=== PATIENT | female | born 1990 | race African-American/Black ===

== ENCOUNTER 2020-09-12 10:20 | Observation (INO) | payer OTHER, SELFPAY ==
[2020-09-12 10:43] VITALS: BP 125/68; PULSE 88
[2020-09-12 10:50] VITALS: BMI 35.5
[2020-09-12 11:00] VITALS: TEMP 36.7
[2020-09-12 11:10] LABS: Add Urine Microscopic? YES; Appearance Urine Clear (Clear); Bacteria Urine Trace /hpf; Bilirubin Urine Negative (Negative); Blood Urine Negative (Negative); Color Urine Yellow (Yellow); Glucose Urine UA Negative (Negative); Ketones Urine Negative (Negative); Leukocyte Esterase Ur Trace LEU/UL (NEGATIVE); Mucus Urine Moderate /lpf; Nitrate Urine Negative (Negative); Protein Urine Negative (Negative); RBC Urine 0-2 /hpf (0-2); Specific Grav Ur 1.015 (1.001-1.035); Squamous Epithelial Cell Urine Occasional /hpf (Few); Urobilinogen Urine Negative mg/dL (<2.0); WBC Clumps Urine Present /HPF; WBC Urine 31-50 /hpf (0-3)
--- NOTE | 2020-09-12 12:12 | PM.OBTRLD ---
OB - Triage/Final Diagnosis Evaluation Laboratory results: Laboratory Tests 09/12/20 10:55 Urine Color Yellow Urine Appearance Clear Urine pH 7.0 Ur Specific [place] 1.015 Urine Protein Negative Urine Glucose (UA) Negative Urine Ketones Negative Ur Blood (Man) Negative Urine Nitrate Negative Urine Bilirubin Negative Urine Urobilinogen Negative Ur Leukocyte Esterase Trace H Urine RBC 0-2 Urine WBC 31-50 H Urine WBC Clumps Present H Ur Squamous Epith Cells Occasional Urine Bacteria Trace Hyaline Casts 1-2 Urine Mucus Moderate H Vital signs: Vital Signs - 24 hr 09/12/20 10:43 Pulse Rate 88 Blood Pressure 125/68 Final Diagnosis (1) Pelvic pain affecting : Code(s): O26.899 - Other specified related conditions, unspecified trimester; R10.2 - Pelvic and perineal pain Status: Acute Plan: encouraged PO hydration (2) UTI (urinary tract infection): Code(s): N39.0 - Urinary tract infection, site not specified Status: Acute Plan: rx for macrobid sent to pharmacy
== END 2020-09-12 12:40 | disposition home or self-care (01) ==
PROVIDERS: Admitting Provider Obstetrics & Gynecology; Visit Provider Obstetrics & Gynecology
DX: O23.40 Unspecified infection of urinary tract in pregnancy, unspecified trimester (principal); O26.899 Other specified pregnancy related conditions, unspecified trimester; R10.2 Pelvic and perineal pain; Z3A.00 Weeks of gestation of pregnancy not specified
CPT/HCPCS: 81001; 87086; 87088; G0378; G0379

== ENCOUNTER 2020-10-19 11:49 | Outpatient (RCR) | payer OTHER, SELFPAY ==
--- NOTE | ~2020-10-19 | US_ITS ---
EXAMINATION: US OB limited w BPP DATE: 10/19/2020 13:07 PLATFORM ARCHITECT INDICATION: tachycardia TECHNIQUE: Real-time transabdominal obstetric ultrasound. FINDINGS: No prior studies for comparison. There is a single living fetus in vertex presentation. The placenta is anterior without placenta pre via. cardiac activity and movement is noted with a heart rate of 141 beats per minute. Biophysical profile: breathin of 2 movement: 2 of 2 tone: 2 of 2 Amniotic flud pocket: 2 of 2 Total score: 8 of 8 Amniotic fluid index is below normal limits measuring 6.5 cm (normal range for gestational age is 7.3 -23.9 cm). IMPRESSION: 1. Single living intrauterine in vertex presentation. 2: Total biophysical profile score of 8/8. 3: Oligohydramnios. SHEYLA measures 6.5 cm. Reviewed, dictated and finalized at location A. FORM ARCHITECT
[2020-10-19 13:55] VITALS: BP 119/78; PULSE 82
== END 2020-10-31 07:53 | disposition home or self-care (01) ==
LOC: ANHOBOP 11:49
PROVIDERS: Visit Provider Obstetrics & Gynecology
DX: O36.8330 Maternal care for abnormalities of the fetal heart rate or rhythm, third trimester, not applicable or unspecified (principal); O41.03X0 Oligohydramnios, third trimester, not applicable or unspecified; Z3A.38 38 weeks gestation of pregnancy
CPT/HCPCS: 59025; 76815; 76819; 84112

== ENCOUNTER 2020-10-26 17:22 | Inpatient (IN) | payer OTHER, SELFPAY ==
[2020-10-26] VITALS (15 sets, daily range): BP systolic 119–140; BP diastolic 78–94; PULSE 79–98; TEMP 36.3–36.4; BMI 36.8
--- NOTE | 2020-10-26 17:22 | LDADM ---
This patient, Zunilda Hunt, was admitted to Labor/Delivery/Recovery 109 on 10/26/20 at 17:22. Plans for labor, pain management and were discussed with patient. Patient/family oriented to hospital policies and general routines including ID bracelet, bed and alarms, visiting hours, pain management, procedures, bathroom and other care routines, personal items, smoking policy, room service/diet and guest tray routines, infant security routines, and visiting hours. Patient/Family are encouraged to report perceived risks to care and to ask questions if they do not understand what they are told or what they should do. See OBIX for further documentation.
[2020-10-26 18:18] LABS: Basophils Percent Auto 0.3 % (0.2-1.2); Eosinophils Absolute Auto 0.1 K/mm3 (0-0.3); Eosinophils Percent Auto 0.9 % (0-4.4); Hematocrit 36.9 % (37.0-47.0); Hemoglobin 12.8 g/dL (12.0-15.0); Immature Granulocyte Absolute 0.15 K/mm3 (0.00-0.031); Immature Granulocyte Percent A 1.3 % (0-0.5); Lymphocytes Absolute Auto 1.52 K/mm3 (0.9-3.2); Lymphocytes Percent Auto 13.1 % (18.3-44.2); Mean Corpuscular HGB Conc 34.7 g/dl (32-36); Mean Corpuscular Hemoglobin 29.4 pg (26-34); Mean Corpuscular Volume 84.6 fl (80-100); Mean Platelet Volume 10.9 fl (7.4-10.4); Monocytes Absolute Auto 0.6 K/mm3 (0.1-0.6); Monocytes Percent Auto 5.4 % (2.6-8.5); Neutrophils Absolute Auto 9.2 K/mm3 (1.3-6.7); Platelet Count Result 290 k/mm3 (150-375); Red Blood Count 4.36 M/mm3 (4.2-5.4); Red Cell Distribution Width 15.2 % (11.5-14.5); White Blood Count 11.6 K/mm3 (4.5-10.0)
[2020-10-26] MEDS: DINOPROSTONE 10 MG VAG INSERT VAGINAL (18:39)
[2020-10-27] VITALS (150 sets, daily range): BP systolic 86–148; BP diastolic 60–116; PULSE 56–208; RESP 16; TEMP 36.3–37.2; O2SAT 75–100
[2020-10-27] MEDS: LACTATED RINGERS 1,000 ML 125 ML IV CONT ×3 (05:59→10:16)
--- NOTE | 2020-10-27 07:02 | WPDANESEPP ---
Anes - Eval Pre Procedure Procedure: Labor epidural Date/Time: 10/27/20 07:02 Surgeon: cyril Preop Diagnosis: pain during labor Pre Op Diagnosis: Induction of Labor Patient Data Age: 30 Gender: F Height: 1.73 m Weight: 110 kg Last Vital Signs Temp 36.6 C 10/27/20 04:21 Pulse 78 10/27/20 05:37 BP 134/92 H 10/27/20 05:37 Pulse Ox 99 10/27/20 07:01 Allergies Allergy/AdvReac Type Severity Reaction Status Date / Time No Known Allergies Allergy Verified 10/13/20 12:38 Home Medications Medication Instructions Recorded Confirmed Type PNV cmb#95-ferrous fumarate-FA 1 tablet PO DAILY 10/13/20 10/19/20 History [] Laboratory Tests 10/26/20 10/26/20 10/26/20 18:12 18:12 18:12 WBC 11.6 K/mm3 H K/mm3 (4.5-10.0) RBC 4.36 M/mm3 M/mm3 (4.2-5.4) Hgb 12.8 g/dL g/dL (12.0-15.0) Hct 36.9 % L % (37.0-47.0) MCV 84.6 fl fl (80-100) MCH 29.4 pg pg (26-34) MCHC 34.7 g/dl g/dl (32-36) RDW 15.2 % H % (11.5-14.5) Plt Count 290 k/mm3 k/mm3 (150-375) MPV 10.9 fl H fl (7.4-10.4) Immature Gran % (Auto) 1.3 % H % (0-0.5) Neut % (Auto) 79.0 % H % (45.5-73.1) Lymph % (Auto) 13.1 % L % (18.3-44.2) [place] % (Auto) 5.4 % % (2.6-8.5) Eos % (Auto) 0.9 % % (0-4.4) Baso % (Auto) 0.3 % % (0.2-1.2) Lymph # (Auto) 1.52 K/mm3 K/mm3 (0.9-3.2) [place] # (Auto) 0.6 K/mm3 K/mm3 (0.1-0.6) Eos # (Auto) 0.1 K/mm3 K/mm3 (0-0.3) Baso # (Auto) 0.0 K/mm3 K/mm3 (0.0-0.1) Abs Immat Gran (auto) 0.15 K/mm3 H K/mm3 (0.00-0.031) Absolute Neuts (auto) 9.2 K/mm3 H K/mm3 (1.3-6.7) Absolute Nucleated RBC 0.0 K/mm3 K/mm3 (0.0-0.012) Nucleated RBC % 0.0 % % (0.0-0.2) RPR Pending Blood Type O Positive Antibody Screen Negative Patient hx anesthesia problems: none Family hx anesthesia problems: none PMFSH Past Medical History Medical History (Updated 10/27/20 @ 07:02 by Juhi Singletary CRNA) Obesity Family History Family History (Updated 10/13/20 @ 12:40 by Patrick Deshpande RN) Other No pertinent family history Social History Social History Smoking packs per day: 0.05 Smoking cigarettes per day: 1.0 Years smoked: 10 Smoking pack-years: 0.50 Smoking status: Former smoker Substance use: never Gender identity (if verbalized by the patient): Female Spiritual care concerns: No Exam Day of Procedure 10/27/20 07:02
--- NOTE | 2020-10-27 07:35 | PM.IMHP ---
H&P: HPI History of Present Illness Date/Time: 10/27/20 07:10 Chief complaint: Induction of Labor Narrative: Zunilda Hunt is a 30 yo @ 39.6wks who was admitted for cervidil induction of labor overnight. She had spontaneous rupture of membranes at 0500. She reports good movement. No bleeding. She just received her epidural and is now comfortable. Her has been complicated by: - no issues Review of Systems Constitutional: Constitutional: Denies chills and Denies fever(s) Eyes: Eyes: Denies blurry vision Cardiovascular: Cardiovascular: Denies chest pain and Denies palpitations Respiratory: Respiratory: Denies cough and Denies dyspnea Gastrointestinal: Gastrointestinal: Denies nausea and Denies vomiting Neurologic: Denies headache(s) Psychiatric: Psychiatric: Denies anxiety PMFSH Past Medical History Medical History Obesity Family History Family History Other No pertinent family history Social History Social History Smoking packs per day: 0.05 Smoking cigarettes per day: 1.0 Years smoked: 10 Smoking pack-years: 0.50 Smoking status: Former smoker Substance use: never Gender identity (if verbalized by the patient): Female Spiritual care concerns: No Meds Home Medications and Allergies Home Medications Medication Instructions Recorded Confirmed Type PNV cmb#95-ferrous fumarate-FA 1 tablet PO DAILY 10/13/20 10/19/20 History [] Allergies Allergy/AdvReac Type Severity Reaction Status Date / Time No Known Allergies Allergy Verified 10/13/20 12:38 Vital Signs Vital Signs - 24 hr 10/26/20 18:14 10/26/20 18:15 10/26/20 18:30 Temperature Pulse Rate 95 96 91 Blood Pressure 119/78 119/81 126/83 Pulse Oximetry 10/26/20 18:39 10/26/20 18:45 10/26/20 19:01 Temperature 36.3 C L Pulse Rate 91 79 Blood Pressure 126/89 134/82 Pulse Oximetry 10/26/20 19:15 10/26/20 19:31 10/26/20 19:45 Temperature Pulse Rate 98 86 88 Blood Pressure 129/91 H 125/91 H 129/88 Pulse Oximetry 10/26/20 20:01 10/26/20 20:15 10/26/20 20:31 Temperature Pulse Rate 93 94 84 Blood Pressure 130/83 134/94 H 140/88 Pulse Oximetry 10/26/20 20:37 10/26/20 23:39 10/26/20 23:45 Temperature 36.4 C 36.4 C Pulse Rate 86 86 Blood Pressure 140/85 131/85 Pulse Oximetry 10/27/20 04:21 10/27/20 05:37 10/27/20 06:34 Temperature 36.6 C Pulse Rate 79 78 Blood Pressure 135/80 134/92 H Pulse Oximetry 99 10/27/20 06:39 10/27/20 06:44 10/27/20 06:49 Temperature Pulse Rate Blood Pressure Pulse Oximetry 99 99 95 10/27/20 06:54 10/27/20 06:56 10/27/20 07:01 Temperature Pulse Rate Blood Pressure Pulse Oximetry 99 98 99 10/27/20 07:06 10/27/20 07:08 Temperature Pulse Rate 80 Blood Pressure 106/84 Pulse Oximetry 99 Exam Const: General: cooperative and comfortable Resp: Effort & Inspection: normal respiratory effort and able to speak in complete sentences Cardio: Rate: regular rate GI: Inspection: non-distended GI Palp: Yes Soft to palpation and No Tenderness to palpation present (GI) : Other: FHT's: 140's/ mod shobha/ + accels/ no decels - cat 1 TOCO: ctx's q2-3 min Membranes: SROM, clear 0500 Position: cephalic Cervix: 4/50/-3 Skin: General skin exam: normal color Neuro: General: patient oriented x3 Extrem: General: normal to inspection Psych: Appearance: grossly normal Affect: normal affect H&P: Results Labs Labs: Short CBC 10/26/20 Range/Units 18:12 WBC 11.6 H (4.5-10.0) K/mm3 Hgb 12.8 (12.0-15.0) g/dL Hct 36.9 L (37.0-47.0) % Plt Count 290 (150-375) k/mm3 Assessment and Plan Assessment and plan (1) Encounter for induction of labor: Code(s): Z34.9
--- NOTE | 2020-10-27 07:36 | WPDHPUPDATE1 ---
History and Physical Update Update Date/Time: 10/27/20 07:36 History and Physical has been reviewed, including an updated exam of the patient. There are NO changes in the patient's condition. Risks, benefits, and alternatives have been discussed and questions answered. Patient agrees to proceed with procedure.
[2020-10-27 07:46] LABS: Rapid Plasma Reagin Non-Reactive (NonReactive)
[2020-10-27] MEDS: OXYTOCIN 30 UNITS/NS 500 ML 30 UNITS/500 ML BAG 6 UNITS IV CONT (08:23)
--- NOTE | 2020-10-27 12:53 | PM.OBPNLAB ---
Pain Control Date/time seen: 10/27/20 12:53 Pain control: epidural Pelvic Exam Dilation (cm): 6 Effacement (%): 90 station: -2 Amniotic membrane status: Ruptured (SROM, clear 0500) Contractions Monitor mode: Internal Contraction frequency: 2 (-3 min) Contraction pattern: Regular Status status: Category ll Comments: occasional decels; resolve with position change Assessment and Plan Pitocin rate (mU/min): 14 Assessment: active labor Plan: continuous present management
[2020-10-27] MEDS: miSOPROStol 200 MCG TABLET 1000 MCG (16:29)
--- NOTE | 2020-10-27 16:43 | PM.OBPRVD ---
OB - Delivery Note Procedure Delivery date: 10/27/20 Intrapartal events: Deceleration Induction method: per cervidil protocol Delivery augmentation: rupture of membranes and pitocin Delivery monitor: external FHT and internal uterine Route of delivery: Indication for instrumentation: nonreassuring FHR tracing Episiotomy description: Right Mediolateral Laceration Description: Perineal - 2nd Degree (RML) Delivery repair: vicryl Specimen: No Quantitative Blood Loss: 250 Anesthesia type: Epidural Disposition: floor Narrative: Patient progressed to complete dilation and began pushing with good maternal effort. She pushed for approximately 45 minutes. Significant decels were noted while the baby was . Right mediolateral episiotomy was cut after mom's consent. With 2 additional pushes the head was delivered. Nuchal cord x2 was noted and reduced x1. The left hand was also noted to be up by the chest, but the shoulders and body were easily delivered. The infant had poor tone and no cry. The umbilical cord was immediately clamped and cut and the infant was handed off to the pediatric nurse. heart rate was found to be normal but poor tone and breathing were noted and breathing assistance via peep was given. With gentle traction on the cord the placenta delivered without issue. Pitocin was infused and bimanual massage was given. Slight atony was noted but responded to the bimanual massage. The cervix, vagina, and perineum were examined and only the right mediolateral episiotomy was noted. The episiotomy was repaired in the normal fashion using 2-0 Vicryl. Good uterine tone and minimal bleeding were noted. 1000 mg of misoprostol was placed rectally to prevent further atony. Sponge, lap, needle, instrument counts were correct at the end of the procedure. [place] Baby Date of : 10/27/20 Time of : 16:16 Weeks of gestation at delivery: 39 Infant gender: Male Weight (pounds): 8 Weight (ounces): 7 presentation: vertex Placenta delivery description: Expressed cord vessel description: Nuchal Cord (x2) and Loose score one minute: 2 score five minutes: 3 score ten minutes: 6 Narrative: 15 min 7
[2020-10-27] MEDS: IBUPROFEN 600 MG TABLET PO (17:22)
[2020-10-27] MEDS: WITCH HAZEL 40 PADS 1 PAD TOPICAL (17:24)
[2020-10-27] MEDS: BENZOCAINE 20% AER SPR (*SP) 56 GM CAN 1 SPRAY TOPICAL (17:24)
--- NOTE | 2020-10-27 19:18 | OBPPTRN ---
Patient transferred to post room #285 via wheelchair. Support person present. Oriented to unit, room, information board, rooming in, admission packet and security measures. Patient verbalizes understanding.
[2020-10-28] MEDS: ACETAMINOPHEN 325 MG TABLET 650 MG PO (04:29)
[2020-10-28 05:33] LABS: Hematocrit 33.6 % (37.0-47.0); Hemoglobin 11.3 g/dL (12.0-15.0)
--- NOTE | 2020-10-28 08:11 | WPDANLDPN2 ---
Anes-Prog Note L&D Date/Time: 10/28/20 08:11 Comfortable throughout: labor and delivery Neuraxial method: epidural Epidural/Spinal procedure site: clean & non-tender Neuro status: Neuro function grossly intact. Cardiovascular status: normal Respiratory status: normal Airway patency: baseline Mental status: baseline Post-Op hydration status: normal Vital Signs: Last Vital Signs Temp 37.2 C 10/27/20 19:23 Pulse 85 10/27/20 19:23 Resp 16 10/27/20 19:23 BP 129/73 10/27/20 19:23 Pulse Ox 97 10/27/20 19:23 Pain score (VAS): 0 I/O: Intake & Output 10/27/20 10/28/20 10/28/20 23:59 07:59 15:59 Intake Total 500 Balance 500 Post-procedural complaints: none Patient feedback: Patient satisfied with anesthetic care.
[2020-10-28 08:45] VITALS: BP 135/81; PULSE 113; RESP 18; TEMP 36.6; O2SAT 99
--- NOTE | 2020-10-28 08:45 | P.PNOB_ITS ---
OB - PN: Subj Subjective Date/time seen: 10/28/20 08:45 PPD#1 Zunilda reports doing well this morning, already showered. She reports her pain is controlled with PO meds. 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 She has tolerated regular diet. She is voiding without issue, already had a bowel movement; does report some hemorrhoid pain. Ambulating w/o issue. Would like her son circumcised today. He's doing much better, off oxygen, but on antibiotics for sepsis protocol. No fever, chills, CP, SOB, N/V, dizziness, palpitations, YAN, or vision change. OB - PN: Obj Data Labs CBC & Chem 7: 10/28/20 04:38 Labs: Laboratory Results - last 24 hr 10/28/20 04:38 Hgb 11.3 L Hct 33.6 L OB - PN A/P Assessment and Plan (1) Normal vaginal delivery: Code(s): O80 - Encounter for full-term uncomplicated delivery Status: Acute Plan day: 1 Plan: routine care Comments: - circumcision performed w/o issue - meeting all goals - plan for discharge home on PPD#2 - Pelvic rest, take meds as prescribed - ER return precautions discussed: HTN, n/v/abd pain, fever, bleeding Time Spent With Patient Time: Total time spent is greater than 50% in coordination of care (as docu mented) at patient's floor/unit and/or counseling patient: Review of Systems Review of Systems: All systems reviewed & are unremarkable except as noted in HPI and below (HPI) Exam Const: General: cooperative, healthy appearing, comfortable and no acute distress Resp: Effort & Inspection: normal respiratory effort and able to speak in complete sentences Auscultation: clear to auscultation bilaterally Cardio: Rate: regular rate GI: Inspection: non-distended GI Palp: Yes Soft to palpation and No Tenderness to palpation present (GI) Auscultation: normal bowel sounds : Other: fundus firm below the umbilicus Skin: General skin exam: normal color Neuro: General: patient oriented x3 Extrem: General: normal to inspection Psych: Appearance: grossly normal Affect: normal affect Attitude: cooperative
--- NOTE | 2020-10-28 09:10 | PC.NURSE ---
Mother called out for assist with feeding, reporting difficulties with latch and sleepy does not maintain latch. Reviewed may be sleepy after circumcision. Reviewed infant feeding cues, frequencies, duration of feedings, feeding elimination flow sheet, and signs of adequate intake. Demonstrated stimulation techniques to wake infant for feeding. Assisted with infant to breast. Reviewed positioning/alignment in cross cradle, holding breast in U hold and guided asymmetrical latch on. Several attempts before was able to latch correctly. nursed eagerly with steady draws for short bursts followed with long pausing, occasional swallowing noted. Reviewed signs of a correct latch, effective nursing and suck swallow ratio. was able to maintain latch without discomfort to mother. Nipple care reviewed. Suggested to stimulate while feeding to keep infant awake and nursing effectively for increased intake and to assist with maintaining deep latch. Demonstrated how to adjust latch more deeply while feeding. Instructed mother to call out for RN assistance if she is unable to latch for feeding or she has discomfort with nursing. Instructed feeding should be initiated three hours from start of last feeding or if feeding cues are noted before. Mother voiced understanding of information shared.
[2020-10-28] MEDS: DOCUSATE SODIUM 100 MG CAPSULE PO (09:53)
[2020-10-28] MEDS: MULTIVIT/MIN/PREN/FOL AC/IRON TABLET 1 TAB PO (09:53)
[2020-10-28] MEDS: IBUPROFEN 600 MG TABLET PO (09:53)
[2020-10-28 20:10] VITALS: BP 126/78; PULSE 98; RESP 16; TEMP 36.7
[2020-10-29 10:00] VITALS: BP 128/78; PULSE 100; RESP 18; TEMP 36.4; O2SAT 100
[2020-10-29] MEDS: IBUPROFEN 600 MG TABLET PO (10:03)
[2020-10-29] MEDS: MULTIVIT/MIN/PREN/FOL AC/IRON TABLET 1 TAB PO (10:04)
[2020-10-29] MEDS: DOCUSATE SODIUM 100 MG CAPSULE PO (10:04)
[2020-10-29] MEDS: LANOLIN (LANSINOH) 7.5 GM CREAM 1 APPLIC TOPICAL (10:05)
[2020-10-31 09:49] VITALS: BP 125/83; PULSE 83; RESP 20; TEMP 37.1; O2SAT 99
--- NOTE | 2020-11-10 12:12 | PM.OBDSVD ---
DS: Admitting Diagnosis Admitting Diagnosis Admitting Diagnosis: Induction of labor DS: Discharge Diagnosis Discharge Diagnosis (1) Normal vaginal delivery: Code(s): O80 - Encounter for full-term uncomplicated delivery Status: Acute OB - DS: Summary OB Procedures : Ultrasound OB Procedures Intrapartum: Spontaneous Vag Delivery OB Procedures: : None Peripartum Data Delivery Method: Natural Vaginal Laceration Description: Perineal - 2nd Degree Episiotomy description: Right Mediolateral complications: none [place] 1: Gender: Male Disposition of : home Status at Discharge Functional status at discharge: independent ambulation Overall status at discharge: patient is back to baseline Time Spent with Patient Time attestation: Total time spent providing and/or coordinating discharge services: Time spent: Less than 30 minutes Exam Const: General: cooperative, healthy appearing, comfortable and no acute distress Resp: Effort & Inspection: normal respiratory effort and able to speak in complete sentences Auscultation: clear to auscultation bilaterally Cardio: Rate: regular rate GI: Inspection: non-distended GI Palp: Yes Soft to palpation and No Tenderness to palpation present (GI) Auscultation: normal bowel sounds : Other: fundus firm below umbilicus Skin: General skin exam: normal color Neuro: General: patient oriented x3 Extrem: General: normal to inspection Psych: Appearance: grossly normal Affect: normal affect Discharge Plan Discharge Attending physician on discharge: Caridad Haque Discharging Clinician: Caridad Haque Anticipated Discharge Date/Time: 10/29/20 12:00 Patient Disposition: Home, Self-Care Activity: pelvic rest Diet: regular Discharge Instructions: Education: Mom and Baby Guide Given to: Mother Follow-Up: Call your delivering provider's office for an appointment to be seen in: as directed by physician Mom and baby should come to the [facility] for the follow-up appointment. Appointment Date/Time: October 31, 2020 at 10:00 am What to expect at your follow-up visit: Blood Pressure Check Physical Assessment Call [phone] if you are unable to keep your appointment time. BREAST CARE: * Wear a snug supportive bra. * For engorgement discomfort: Breast Feeding: * Apply warm moist washcloths * Express milk as needed to relieve engorgement * Wear loose clothing * For sore nipples: * Identify correct latch-on * Apply warm moist washcloths before and after nursing * Air dry nipples after nursing * May apply Lansinoh cream to nipples EPISIOTOMY/PERINEAL CARE: * Until bleeding stops, use your shyla bottle after urinating * Change your pad frequently throughout the day * You may take sitz baths several times a day (fill your bathtub with warm water and soak for 20 minutes.) Do NOT bathe in the water * No tub baths until seen by your physician - You may shower ACTIVITY: * Rest as much as possible. * Do not exercise or lift anything heavier than your baby (such as laundry or other children.) * Avoid stairs or driving as much as possible. * Do not put anything into the vagina. No douching, tampons, or sexual activity until seen by physician. NOTIFY PHYSICIAN IF YOU HAVE ANY QUESTIONS OR IF ANY OF THE FOLLOWING SYMPTOMS OCCUR: * If your episiotomy becomes red, swollen, or more painful than what you have experienced in the hospital. * If your vaginal bleeding becomes foul smelling. * If your vaginal bleeding becomes more heavy than a period or if your bleeding changes from pink to bright red. However, you may pass an occasional walnut-sized clot once or twice for the first week . * If you experience a sharp, shooting pain in you calves. * If you discover a hard, reddened area on your moustapha
== END 2020-10-29 13:15 | disposition home or self-care (01) | DRG 807 ==
LOC: ANHLDR 10-27 14:23 → ANHOB2 10-27 19:24
PROVIDERS: Admitting Provider Obstetrics & Gynecology; Visit Provider Obstetrics & Gynecology
DX: O76 Abnormality in fetal heart rate and rhythm complicating labor and delivery (principal); Z37.0 Single live birth; O69.81X0 Labor and delivery complicated by cord around neck, without compression, not applicable or unspecified; Z3A.39 39 weeks gestation of pregnancy
CPT/HCPCS: 36415; 84112; 85014; 85018; 85025; 86592; 86850; 86900; 86901; A9270; J2590; J2795; J7120

== ENCOUNTER 2020-10-31 14:05 | Outpatient (RCR) | payer OTHER, SELFPAY ==
--- NOTE | 2020-10-31 14:17 | PC.NURSE ---
IN 1315 OUT 1400 HISTORY: Pt. delivered at [facility] at 39/6 weeks. had a collapsed lung after delivery. Mother had no complications after delivery. Infant is now 4 days old. Infant appears to be well cared for. Mother told to call ICP today to schedule appt. Mother reports: Pain during and trouble with latching and positioning . Mother wishes: To have help with latch and positioning. Currently at 6 wets per day and 6 yellow seedy stools per day. weight: 8-7 Last Weight: 8-3.8 Pre feeding weight: 3737 Post feeding weight: 3739 OBSERVATION: Infant sleepy at breast. Mom states she fed him before visit. Able to wake easily but unable to get infant to breastfeed more than a few sucks. Noted infant sucking on tongue. Mom assisted and educated on positioning and aligning infant. Reviewed deep latch and able to get infant to latch intermittently. Mom states no pain with deeper latch. Demonstrated how to support breast by using the C hold and rolled towel under the breast for support. Mother able to hand express milk and leaking noted on mom's clothing. Mom instructed to feed infant on breast first and supplement after with expressed breastmilk or formula. Mom instructed to feed infant on breast for 30 minutes, supplement infant and then pump for 15 minutes. Mom educated to increase supplement as infants needs increase. PLAN: Mother will follow above feeding plan using techniques for deeper latch and positioning. Mother will call with further questions or concerns. Follow up phone call scheduled for 11/01/2020.
--- NOTE | 2020-11-01 11:30 | PC.NURSE ---
Followed up with patient over the phone. States she is pumping 2 ounces after every feeding. is eating well at the breast with audible swallowing noted. States has been voiding and stooling 6-8 times per day and is content between feedings. Reported stools were yellow and seedy. Mom is going to stop pumping post feeding since is doing well as the breast. Encouraged mom to call back with questions or concerns and to call peds to make f/u appt.
== END 2020-11-04 09:08 | disposition home or self-care (01) ==
LOC: ANHOBOP 14:05
PROVIDERS: Visit Provider Pediatrics
DX: Z39.1 Encounter for care and examination of lactating mother (principal)
CPT/HCPCS: 99212; G0463

== ENCOUNTER 2021-06-23 18:24 | Emergency (ER) | payer OTHER, SELFPAY ==
[2021-06-23 19:25] VITALS: BP 126/78; PULSE 93; RESP 17; TEMP 36.4; O2SAT 100
[2021-06-23 20:17] LABS: Add Urine Microscopic? YES; Appearance Urine Cloudy (Clear); Bacteria Urine Trace /hpf; Bilirubin Urine Negative (Negative); Blood Urine Negative (Negative); Color Urine Amber (Yellow); Glucose Urine UA Negative (Negative); Ketones Urine Negative (Negative); Leukocyte Esterase Ur 1+ LEU/UL (Negative); Mucus Urine Heavy /lpf; Nitrate Urine Negative (Negative); Protein Urine 2+ mg/dL (Negative); Specific Grav Ur 1.028 (1.001-1.035); Squamous Epithelial Cell Urine Many /hpf (Few)
--- NOTE | 2021-06-23 21:28 | ED.FEVER ---
HPI - Fever General Chief Complaint: Fever Stated Complaint: fever 1 1/2 week- COVID - Time Seen by Provider: 06/23/21 19:42 Source: patient and RN notes reviewed Mode of arrival: ambulatory Limitations: no limitations History of Present Illness HPI Narrative: Patient is a 31-year-old female who presents with intermittent fevers over the last week patient denies any other symptoms or complaints no she has been vaccinated against Covid she takes ibuprofen with relief presents afebrile denying any pain patient is nontoxic-appearing denies sick contacts Related Data Allergies Allergy/AdvReac Type Severity Reaction Status Date / Time No Known Allergies Allergy Verified 06/23/21 19:28 Review of Systems Review of Systems: All systems reviewed & are unremarkable except as noted in HPI and below PMFSH Past Medical History Medical History Obesity Family History Family History Other No pertinent family history Social History Social History Smoking packs per day: 0.05 Smoking cigarettes per day: 1.0 Years smoked: 10 Smoking pack-years: 0.50 Smoking status: Former smoker Substance use: never Gender identity (if verbalized by the patient): Female Spiritual care concerns: No Exam Narrative: GENERAL: Well-appearing, well-nourished, and in no acute distress. HEAD: Normocephalic, atraumatic. EYES: PERRLA and EOMI. ENT: Nares clear, no rhinorrhea or epistaxis. Mucous membranes moist. Oropharynx without tonsillar hypertrophy exudate or other lesions. Bilateral TMs pearly escobedo nonbulging NECK: Supple. No adenopathy or masses. CHEST: Clear to auscultation. No respiratory distress. No wheezes rales or rhonchi HEART: Regular rate and rhythm. No murmur heard. EXTREMITIES: Normal range of motion. No edema. SKIN: Warm, dry, no rash. NEURO: No focal deficits. Alert and oriented x3. PSYCH: Normal mood and affect. Course [employer]/PA Physician Supervision Patient in the room no distress unsure as to the etiology of her fever she has no other complaints felt appropriate for outpatient reevaluation normal vital signs Vital Signs Vital signs: Vital Signs Temperature 97.5 F L 06/23/21 19:25 Pulse Rate 93 06/23/21 19:25 Respiratory Rate 17 06/23/21 19:25 Blood Pressure 126/78 06/23/21 19:25 Pulse Oximetry 100 06/23/21 19:25 Temperature 97.5 F L 06/23/21 19:25 Pulse Rate 93 06/23/21 19:25 Respiratory Rate 17 06/23/21 19:25 Blood Pressure 126/78 06/23/21 19:25 Pulse Oximetry 100 06/23/21 19:25 MDM - Fever MDM Narrative Medical decision making narrative: Patient in the room in no distress aware of case findings treatment plan and diagnosis agreeing to follow-up as instructed felt appropriate for outpatient reevaluation given reasons to return Lab Data Labs: Lab Results 06/23/21 Range/Units 20:04 Urine Color Carmen (Yellow) Urine Appearance Cloudy H (Clear) Urine pH 5.0 (5.0-9.0) Ur Specific [place] 1.028 (1.001-1.035) Urine Protein 2+ H (Negative) mg/dL Urine Glucose (UA) Negative (Negative) mg/dL Urine Ketones Negative (Negative) mg/dL Ur Blood (Man) Negative (Negative) Urine Nitrate Negative (Negative) Urine Bilirubin Negative (Negative) Urine Urobilinogen 2.0 H (<2.0) mg/dL Leukocyte Esterase Rfl 1+ H (Negative) ANGELA/UL Urine RBC 3-5 H (0-2) /hpf Urine WBC 10-15 H /hpf Ur Squamous Epith Cells Many H (Few) /hpf Urine Bacteria Trace /hpf Hyaline Casts 1-2 (None) /lpf Urine Mucus Heavy H /lpf UCG Bedside Result Negative Reference Range: Negative Discharge Plan Discharge Clinical Impression: Fever Patient Disposition: Home, Self-Care Condition: Stable Instructions: An
== END 2021-06-23 21:46 | disposition home or self-care (01) ==
PROVIDERS: Emergency Medicine Emergency Medical Services; Emergency Provider Emergency Medicine
DX: R50.9 Fever, unspecified (principal); E66.9 Obesity, unspecified; Z68.35 Body mass index [BMI] 35.0-35.9, adult; Z87.891 Personal history of nicotine dependence
CPT/HCPCS: 81001; 81025; 87086; 99283

== ENCOUNTER 2022-11-19 13:03 | Emergency (ER) | payer OTHER, SELFPAY ==
[2022-11-19 13:07] VITALS: BP 124/87; PULSE 101; RESP 14; TEMP 36.4; O2SAT 98
--- NOTE | 2022-11-19 14:30 | ED.GENADULT ---
HPI - General Adult General Chief complaint: Fall Stated complaint: fall down steps, lower back pain Time Seen by Provider: 11/19/22 13:45 History of Present Illness HPI narrative: 32-year-old female presented mechanical fall. Per patient, she was going downstairs slipped from her right buttock which hurt, pain did not go away so she presented to the ED for further evaluation. She denied injury elsewhere, head strike, LOC, chest pain, Past medical history: Denied Past surgical history: Denied Medications: Denied Allergies: Denied Social: Vaping, denied active smoking, alcohol, recreational drugs Related Data Allergies Allergy/AdvReac Type Severity Reaction Status Date / Time No Known Allergies Allergy Verified 06/23/21 19:28 Review of Systems Review of Systems: See HPI [facility] Past Medical History Medical History Obesity Family History Family History Other No pertinent family history Social History Social History Smoking packs per day: 0.05 Smoking cigarettes per day: 1.0 Years smoked: 10 Smoking pack-years: 0.50 Smoking status: Former smoker Substance use: never Gender identity (if verbalized by the patient): Female Spiritual care concerns: No Comments See HPI Exam Narrative: APPEARANCE: Alert, calm and cooperative, no acute distress, phonating, sitting comfortably during visit HEAD: atraumatic EYES: Pupils equal round an reactive to light, extra ocular movements intact, no conjunctival injection NOSE: Normal no drainage NECK: Supple, without meningismus RESPIRATORY: Lungs clear to auscultation bilaterally, no wheezes/rales/rhonchi, breathing comfortably CARDIOVASCULAR: Regular rate and rhythm, no visible jugular venous distension ABDOMINAL: Soft, nontender, nondistended, no guarding, no rebound/peritoneal signs, no costovertebral tenderness to palpation BACK: no midline tenderness to palpation, no step offs EXTREMITIES: Abrasion to right forearm, no deformities, No edema, palpable peripheral pulses, warm, well perfused, no tenderness to bilateral calves. NEURO: Alert, moving all extremities symmetrically SKIN:: Warm, dry. Normal color PSYCHIATRIC: Normal affect/mood Course Vital Signs Vital signs: Vital Signs Temperature 97.6 F 11/19/22 13:07 Pulse Rate 101 H 11/19/22 13:07 Respiratory Rate 14 11/19/22 13:07 Blood Pressure 124/87 11/19/22 13:07 Pulse Oximetry 98 11/19/22 13:07 Temperature 97.6 F 11/19/22 13:07 Pulse Rate 101 H 11/19/22 13:07 Respiratory Rate 14 11/19/22 13:07 Blood Pressure 124/87 11/19/22 13:07 Pulse Oximetry 98 11/19/22 13:07 Medical Decision Making [facility] Narrative Medical decision making narrative: Medical Decision Making 32-year-old female with a past medical history presented 1 day after mechanical fall falling on her buttock, without other injuries. Physical exam atraumatic, abrasion to right forearm, physical exam benign, vitals within normal notes. Impression: History and exam suggestive of muscular strain. No concern for fracture or dislocations. Analgesia given Appropriate for discharge home Differential Diagnosis Differential Diagnosis: See [facility] Vital Signs Vital Signs: Vital Signs Temperature 97.6 F 11/19/22 13:07 Pulse Rate 101 H 11/19/22 13:07 Respiratory Rate 14 11/19/22 13:07 Blood Pressure 124/87 11/19/22 13:07 Pulse Oximetry 98 11/19/22 13:07 Temperature 97.6 F 11/19/22 13:07 Pulse Rate 101 H 11/19/22 13:07 Respiratory Rate 14 11/19/22 13:07 Blood Pressure 124/87 11/19/22 13:07 Pulse Oximetry 98 11/19/22 13:07 Discharge Plan Discharge Clinical Impression: Accident due to mechanical fall without injury Patient Disposition: Home, Self-Care Condition: Stable Instructions: Muscle Strain
[2022-11-19] MEDS: ACETAMINOPHEN 500 MG TABLET 1000 MG PO (14:40)
[2022-11-19] MEDS: LIDOCAINE 5% PATCH 1 PATCH TRANSDERM (14:41)
[2022-11-19] MEDS: KETOROLAC 30 MG/ML VIAL (*BKC) IM (14:41)
[2022-11-19 15:10] VITALS: TEMP 36.4
[2022-11-19] MEDS: TETANUS,DIPHTHERIA,AC PERTUSSIS ADULT (0.5 ML) BOOSTRIX IM (15:10)
[2022-11-19 15:11] VITALS: TEMP 36.4
== END 2022-11-19 15:21 | disposition home or self-care (01) ==
PROVIDERS: Emergency Provider Emergency Medicine
DX: S39.92XA Unspecified injury of lower back, initial encounter (principal); S50.811A Abrasion of right forearm, initial encounter; Z23 Encounter for immunization; W10.9XXA Fall (on) (from) unspecified stairs and steps, initial encounter
CPT/HCPCS: 90471; 90715; 96372; 99283; A9270; J1885